=== PATIENT | female | born 2005 | race American Indian/Alaskan Native ===

== ENCOUNTER 2024-10-17 18:06 | Emergency (ER) | payer MEDICAID ==
[2024-10-17] MEDS: Sodium Chloride 0.9% 1,000 ML IV ONE (20:14)
[2024-10-17 20:38] LABS: BASOPHILS PERCENT AUTO 0.2 % (0.0-1.0); EOSINOPHILS ABSOLUTE AUTO 0.1 K/mm3 (0.0-0.7); EOSINOPHILS PERCENT AUTO 0.6 % (0.0-5.0); HEMATOCRIT 36.6 % (37.0-47.0); IMMATURE GRAN ABSOLUTE AUTO 0.04 K/mm3 (0.00-0.05); IMMATURE GRAN PERCENT AUTO 0.2 % (0.0-0.4); LYMPHOCYTES ABSOLUTE AUTO 2.9 K/mm3 (2.0-8.8); LYMPHOCYTES PERCENT AUTO 17.2 % (50.0-65.0); MEAN CORPUSCULAR HEMOGLOBIN 32.5 pg (28.0-32.0); MEAN CORPUSCULAR HGB CONC 35.5 g/dl (32.0-36.0); MEAN CORPUSCULAR VOLUME 91.5 fl (83.0-99.0); MEAN PLATELET VOLUME 10.6 fl (9.4-12.3); MONOCYTES ABSOLUTE AUTO 1.2 K/mm3 (0.1-1.4); MONOCYTES PERCENT AUTO 7.2 % (2.0-10.0); NEUTROPHILS ABSOLUTE AUTO 12.6 K/mm3 (1.5-8.5); NEUTROPHILS PERCENT AUTO 74.6 % (35.0-45.0); PLATELET COUNT,PLT 297 K/mm3 (150-400); WHITE BLOOD CELL COUNT,WBC 16.86 K/mm3 (4.5-13.5)
[2024-10-17 21:31] LABS: A/G RATIO 0.9 (1-2); ALBUMIN 3.7 g/dl (3.4-5.0); ANION GAP 14.5 (5-15); BILIRUBIN TOTAL 0.5 mg/dL (0.2-1.0); CALCIUM 8.8 mg/dL (8.5-10.1); CREATININE 0.8 mg/dL (0.55-1.02); EST CRCL DRUG DOSING (CG) 85.35 mL/min; POTASSIUM,K 3.5 mEq/L (3.5-5.1); PROTEIN TOTAL,TP 7.7 g/dl (6.4-8.2)
== END 2024-10-17 21:50 | disposition home or self-care (01) ==
LOC: JD.ED 18:06
DX: O20.9 Hemorrhage in early pregnancy, unspecified (principal); Z3A.08 8 weeks gestation of pregnancy; Z88.1 Allergy status to other antibiotic agents; Z88.6 Allergy status to analgesic agent
CPT/HCPCS: 36415; 76817; 76817-26; 80053; 82550; 84702; 85025; 86900; 86901; 99284